=== PATIENT | male | born 1990 | race Asian ===

== ENCOUNTER 2020-07-28 16:27 | Inpatient (IN) | payer BC, OTHER ==
[~2020-07-28] VITALS: Ht 180.3 cm; Wt 78.5 kg
[2020-07-28 09:49] VITALS: BP 114/60
[2020-07-28 17:35] VITALS: BP 110/60
--- NOTE | 2020-07-28 17:47 | NUR ---
ED Nurse Note: Patient walked in to ER from home, stated came to have blood transfusion. Patient 's PCP determined thatpatient's hgb level 6.5, and he needs blood transfusion LIANNA. Patient presented pale, with steady gait, AAO x4, VSS at this time.
--- NOTE | 2020-07-28 17:50 | NUR ---
ED Nurse Note: IV line was established on left AC 20ga, blood sent to lab
--- NOTE | 2020-07-28 18:03 | Emergency Room Report ---
History of Present Illness General Chief Complaint: General Complaint Source: Patient (Manjula Ruiz) Present Illness HPI 30 YO male w. hx of bleeding hemorrhoids and anemia presents to the ED sent in by GI specialist for low hemoglobin. Pt. reports his blood work came back as hgb of 6.5 ( has results with him ). Pt. reports feeling weak and dizzy. Pt. reports he was scheduled to have surgery to address the bleeding hemorrhoids however anesthesiologist and surgeon want his Hgb to be normalized prior to full sedation during surgery. Pt. reports he has had bleeding hemorrhoids for over 3 years. Pt. reports intermittent episodes. He reports he began bleeding again about a month ago and describes. "moderate amount daily". He reports BRBPR. Denies black tarry stools. Pt. denies significant changes in weight, SOB, CP or palpitations. Pt. denies syncope. Pt. denies every having a transfusion in the past though has been aware he is very anemic. (Manjula Ruiz) Allergies: Coded Allergies: No Known Allergies (Unverified , 07/28/20) COVID-19 Screening Contact w/high risk pt: No Experienced COVID-19 symptoms?: No COVID-19 Testing performed LOG SORTING SUPERVISOR: No (Manjula Ruiz) Patient History Past Medical History: see triage record Past Surgical History: none Pertinent Family History: none Reviewed Nursing Documentation: PMH: Agreed; PSxH: Agreed (Manjula Ruiz) Nursing Documentation-PMH Past Medical History: No Stated History (Manjula Ruiz) Review of Systems All Other Systems: negative except mentioned in HPI (Manjula Ruiz) Physical Exam Vital Signs Date Time Temp Pulse Resp B/P (MAP) Pulse Ox O2 Delivery O2 Flow Rate FiO2 07/28/20 17:25 98.4 96 18 110/60 (77) 97 Room Air Sp02 EP Interpretation: reviewed, normal General Appearance: no apparent distress, alert, GCS 15, non-toxic Head: normocephalic, atraumatic Eyes: bilateral eye normal inspection, bilateral eye PERRL ENT: hearing grossly normal, normal voice Neck: full range of motion Respiratory: chest non-tender, lungs clear, normal breath sounds, no respiratory distress, no accessory muscle use, no wheezing, speaking full sentences Cardiovascular #1: regular rate, rhythm, other - mildly delayed cap refill. Gastrointestinal: normal bowel sounds, non tender, soft, non-distended, no guarding Rectal: deferred, hemorrhoids Musculoskeletal: normal range of motion, gait/station normal, non-tender Neurologic: alert, motor strength/tone normal, oriented x3, sensory intact, responsive, speech normal Psychiatric: judgement/insight normal Skin: no rash, pallor - pale palms (Manjula Ruiz) Procedures Critical Care Time Critical Care Time Pt. presentation to the ED mandated critical care. Pt. required immediate intervention to assess the risks and attempt to prevent cardiovascular compromise that could lead to . The patient presented severely anemic with a Hgb. of 6.2 requiring emergent blood transfusion. Critical care time is 63 minutes excluding any reportable procedure. Critical care time included evaluation, multiple reevaluation, looking at old charts, interpreting laboratory and diagnostic data, discussing case with patient, his ,admitting physician/consultants and charting. (Manjula Ruiz) Medical Decision Making PA Attestation Dr. Rivas is my supervising Physician whom patient management has been dis cussed with. (Manjula Ruiz) PA Attestation I participated in the care of this patient along with MODESTO Jones Briefly, this is a 30-year-old male presenting for evaluation of anemia. Had low hemoglobin on outpatient testing. He attributes this to hemorrhoidal bleeding for which she is pending surgery. Feels weak and lightheaded. No prior transfusions. Low hemoglobin confirmed and arranging for transfusion though the patient was found leukopenic and require further work-up. Accepted by [facility] who is on panel today. Dr. Lafleur physician marine service station attendant this evening. Additional labs sent at the request of admitting team. (Brando Rivas MD) Diagnostic Impression: Primary Impression: Severe anemia Additional Impressions: Patient consents to blood transfusion Bleeding hemorrhoids ER Course 30 YO male w. hx of bleeding hemorrhoids and anemia presents to the ED sent in by GI specialist for low hemoglobin. Pt. reports his blood work came back as hgb of 6.5 ( has results with him ). Pt. reports feeling weak and dizzy. Pt. reports he was scheduled to have surgery to address the bleeding hemorrhoids however anesthesiologist and surgeon want his Hgb to be normalized prior to full sedation during surgery. Pt. reports he has had bleeding hemorrhoids for over 3 years. Pt. reports intermittent episodes. He reports he began bleeding again about a month ago and describes. "moderate amount daily". He reports BRBPR. Denies black tarry stools. Pt. denies significant changes in weight, SOB, CP or palpitations. Pt. denies syncope. Pt. denies every having a transfusion in the past though has been aware he is very anemic. Ddx considered but are not limited to : Hypovolemia, infection, GI bleed, Cancer, blood dyscrasia or Anemia just to name a few. Vital signs: are WNL, pt. is afebrile H&PE are most consistent with Pale appearing alert and oriented young male who is non toxic in appearance, and in NAD. Pt. does not have acute abdomen on exam. VS are normal no significant signs of compensation. ORDERS: -CBC: Pancytopenia, 3.5 WBC,, Hgb 6.2 , hct: 20.7 -BMP: WNL - PT/PTT: 11.5/ 20 ABO Type and screen : B Positive ED INTERVENTIONS: -Pt. placed on cardiac monitoring. -Pt. education re: blood transfusions and possible complications/side effects. Pt. had a chance to ask any questions or request further clarification. Pt. verbalized his understanding and intent to proceed with Blood transfusion. Consent form was signed. - Blood transfusion of 2 units initiated. I feel this is a highly complex case requiring extensive laboratory work up, multiple blood transfusions, repeat exams while in ED, and admission to hospital. DISPOSITION: at this time pt. will be admitted for Severe anemia. Pt. signed out to attending physician Dr. Rivas pending accepting admitting doctor. Labs Test 07/28/20 18:23 White Blood Count 3.7 K/UL (4.8-10.8) Red Blood Count 3.00 M/UL (4.70-6.10) Hemoglobin 6.2 G/DL (14.2-18.0) Hematocrit 20.7 % (42.0-52.0) Mean Corpuscular Volume 69 FL (80-99) Mean Corpuscular Hemoglobin 20.8 PG (27.0-31.0) Mean Corpuscular Hemoglobin Concent 30.1 G/DL (32.0-36.0) Red Cell Distribution Width 16.8 % (11.6-14.8) Platelet Count 372 K/UL (150-450) Mean Platelet Volume 6.0 FL (6.5-10.1) Neutrophils (%) (Auto) % (45.0-75.0) Lymphocytes (%) (Auto) % (20.0-45.0) Monocytes (%) (Auto) % (1.0-10.0) Eosinophils (%) (Auto) % (0.0-3.0) Basophils (%) (Auto) % (0.0-2.0) Differential Total Cells Counted 100 Neutrophils % (Manual) 60 % (45-75) Lymphocytes % (Manual) 30 % (20-45) Monocytes % (Manual) 8 % (1-10) Eosinophils % (Manual) 2 % (0-3) Basophils % (Manual) 0 % (0-2) Band Neutrophils 0 % (0-8) Platelet Estimate Adequate Platelet Morphology Normal Hypochromasia 3+ Anisocytosis 1+ Prothrombin Time 11.5 SEC (9.30-11.50) Prothromb Time International Ratio 1.0 (0.9-1.1) Activated Partial Thromboplast Time 20 SEC (23-33) Sodium Level 141 MMOL/L (136-145) Potassium Level 4.2 MMOL/L (3.5-5.1) Chloride Level 105 MMOL/L (98-107) Carbon Dioxide Level 29 MMOL/L (21-32) Anion Gap 7 mmol/L (5-15) Blood Urea Nitrogen 11 mg/dL (7-18) Creatinine 1.0 MG/DL (0.55-1.30) Estimat Glomerular Filtration Rate > 60 mL/min (>60) Glucose Level 119 MG/DL (74-106) Calcium Level 9.2 MG/DL (8.5-10.1) (Manjula Ruiz) Last Vital Signs Date Time Temp Pulse Resp B/P (MAP) Pulse Ox O2 Delivery O2 Flow Rate FiO2 07/28/20 17:35 98.4 89 18 110/60 97 Room Air (Manjula Ruiz) Disposition: ADMITTED INPATIENT Condition: Serious Referrals: [facility],REFERRING (PCP) Manjula Ruiz Jul 28, 2020 18:03 Brando Rivas MD Jul 28, 2020 19:38
[2020-07-28 18:44] LABS: HEMATOCRIT 20.7 % (42.0-52.0); MEAN CORPUSCULAR VOLUME 69 FL (80-99); PLATELET COUNT 372 K/UL (150-450); RED CELL DISTRIBUTION WIDTH 16.8 % (11.6-14.8); WHITE BLOOD COUNT 3.7 K/UL (4.8-10.8)
[2020-07-28 18:53] LABS: ANION GAP 7 mmol/L (5-15); BLOOD UREA NITROGEN 11 mg/dL (7-18); CALCIUM 9.2 MG/DL (8.5-10.1); CARBON DIOXIDE 29 MMOL/L (21-32); CHLORIDE 105 MMOL/L (98-107); POTASSIUM 4.2 MMOL/L (3.5-5.1); SODIUM 141 MMOL/L (136-145)
[2020-07-28 19:01] LABS: HEMOGLOBIN 6.2 G/DL (14.2-18.0)
--- NOTE | 2020-07-28 19:10 | NUR ---
HAND-OFF: Report given to JONES Ryan.
--- NOTE | 2020-07-28 19:20 | NUR ---
ED Nurse Note: Recieved report to resume care, pt in bed resting quietly awake and alert, has patent saline lock in left ac area, pt is waiting for blood transfusion of PRBS to be given, pt denies pain, no sob oa labored breathing, pt has never been transfused before, witnessed PA at bedside discussing all factors for tramnsfusion and pt allowed to ask questions, consent form was signed, pt placed on cardiac monitoring, waiting for blood to be ready for transfusion.
[2020-07-28 20:00] VITALS: BP 117/68
--- NOTE | 2020-07-28 21:00 | NUR ---
ED Nurse Note: Pt continues to rest quietly in bed, awake and alert, denies pain or any acute chagnes, no active bleeding noted, pt v/s stable and saline lock intact, continuing to wait for blood to be ready for transfusion, will continue to closely monitor for any acute chagnes or increased distress.
[2020-07-28 21:35] VITALS: BP 127/50
[2020-07-28 21:55] VITALS: BP 111/49
--- NOTE | 2020-07-28 21:55 | NUR ---
ED Nurse Note: Pt started with transfusion of PRBC's, stayed at bedside with pt for first 15 minutes, no s/s of adverse reaction noted, pt on complete cardiac monitoring, pt re-verbalizes s/s to notify nurse of immediately, IV site patent, will continue to closely monitor following protocol during transfusion.
[2020-07-28 22:37] LABS: % IRON SATURATION 2 % (15-50); IRON 8 ug/dL (50-175); TOTAL IRON BINDING CAPACITY 493 ug/dL (250-450)
[2020-07-28 22:38] LABS: LACTATE DEHYDROGENASE 172 U/L (81-234)
[2020-07-28 22:49] LABS: ALANINE AMINOTRANSFERASE 35 U/L (12-78); ALBUMIN 3.9 G/DL (3.4-5.0); ALKALINE PHOSPHATASE 50 U/L (46-116); ASPARTATE AMINO TRANSFERASE 17 U/L (15-37); BILIRUBIN,DIRECT < 0.1 MG/DL (0.0-0.3); BILIRUBIN,TOTAL 0.3 MG/DL (0.2-1.0); FERRITIN 2 NG/ML (8-388)
[2020-07-28 22:55] VITALS: BP 109/57
--- NOTE | 2020-07-28 22:55 | NUR ---
ED Nurse Note: Pt tolerating blood transfusionn well, v/s and temp remain wnl, IV site patent, pt resting quietly on cardiac monitoring, will continue to closely monitor, pt denies pain, sob, or any acute chagnes.
--- NOTE | 2020-07-28 23:45 | NUR ---
ED Nurse Note: Pt completed first unit of PRBC's, tolerated well, no s/s of adverse reaction noted, IV site patent, pt denies pain, sob, or any other complaints or discomforts, pt ambulating to bathroom, steady gait, denies dizziness or weakness, pt replaced back to cardiac monitoring, ns infusing at TKO while retrieving second unit to start.
[2020-07-29 01:25] VITALS: BP 121/68
--- NOTE | 2020-07-29 01:30 | NUR ---
ED Nurse Note: Pt started on second unit of blood, tolerating well, no s/s of adverse reaction noted, IV site intact and patent, pt denies chest pain or any pain, no sob or labored breathing, denies any complaints or discomforts, pt also taking oral fluids well, no complications or acute chagnes, will continue to monitor while recieving blood transfusion.
[2020-07-29 02:30] VITALS: BP 124/66
--- NOTE | 2020-07-29 03:00 | NUR ---
ED Nurse Note: Pt resting quietly, transfusion of PRBC's infusing, pt tolerating well, IV site patent, v/s stable, no sob or laobored breathing, pt denies pain or any active bleeding, remains on cardiac monitoring, will continue to monitor and follow protocol for blood transfusion.
--- NOTE | 2020-07-29 04:45 | NUR ---
ED Nurse Note: Transfusion completed, no s/s of adverse reaction noted, pt tolerated well, v/s stable, denies pain or any acute changes, IV site patent, pt resting quietly, will continue to closely monitor. pt has been admitted to hospital, no beds available.
[2020-07-29 05:00] VITALS: BP 109/71
--- NOTE | 2020-07-29 06:25 | NUR ---
ED Nurse Note: Pt in bed resting quietly, awakened to use bathroom, ambulates well with steady gait, pt waiting for admission room in hospital, pt wants to be discharged from ed, will inform md, pt denies pain, no sob or labored breathing noted, IV site patent, nad or changes noted, will continue to monitor while waiting to send to floor bed after 730am.
--- NOTE | 2020-07-29 09:15 | NUR ---
ED Nurse Note: report given to china michael in telemetry unit
--- NOTE | 2020-07-29 09:29 | NUR ---
ED Nurse Note: blood drawn for post blood trasnfusion
[2020-07-29 09:30] VITALS: BP 109/71
[2020-07-29 09:42] LABS: BASOPHILS % (AUTO) 0.6 % (0.0-2.0); EOSINOPHILS % (AUTO) 3.2 % (0.0-3.0); HEMATOCRIT 24.9 % (42.0-52.0); LYMPHOCYTES % (AUTO) 35.3 % (20.0-45.0); MEAN CORPUSCULAR VOLUME 73 FL (80-99); MONOCYTES % (AUTO) 8.3 % (1.0-10.0); NEUTROPHILS % (AUTO) 52.7 % (45.0-75.0); PLATELET COUNT 313 K/UL (150-450); RED BLOOD COUNT 3.43 M/UL (4.70-6.10); RED CELL DISTRIBUTION WIDTH 18.4 % (11.6-14.8); WHITE BLOOD COUNT 4.6 K/UL (4.8-10.8)
[2020-07-29 09:51] LABS: ALANINE AMINOTRANSFERASE 40 U/L (12-78); ALBUMIN 3.5 G/DL (3.4-5.0); ALBUMIN/GLOBULIN RATIO 1.2 (1.0-2.7); ALKALINE PHOSPHATASE 46 U/L (46-116); ANION GAP 5 mmol/L (5-15); ASPARTATE AMINO TRANSFERASE 19 U/L (15-37); BILIRUBIN,TOTAL 0.6 MG/DL (0.2-1.0); BLOOD UREA NITROGEN 11 mg/dL (7-18); CALCIUM 8.4 MG/DL (8.5-10.1); CARBON DIOXIDE 27 MMOL/L (21-32); CHLORIDE 106 MMOL/L (98-107); PHOSPHORUS 4.2 MG/DL (2.5-4.9); POTASSIUM 3.9 MMOL/L (3.5-5.1); SODIUM 138 MMOL/L (136-145)
--- NOTE | 2020-07-29 09:51 | NUR ---
NURSE NOTES: Report received from Luz GOLDMAN. Patient admitted from ER via bashirrbrittany, AxOx4, ambulatory, not in distress. No complaints of pain or dizziness. Per nurse, patient received 2 units PRBC in the ER with no adverse events for Hgb level 6.2. Currently waiting repeat labwork. No signs of active bleeding. Patient hooked to tele monitor, SR. PIV on left AC G.18 patent. Pt is ambulatory and continent. Bed low and locked, siderails up x2, call light placed within reach and instructed to call nurse for assistance. Will continue to monitor.
--- NOTE | 2020-07-29 09:54 | NUR ---
NURSE NOTES: Per Dr. Quiñones, surgery to see patient today, keep NPO. Pt educated and verbalized understanding.
--- NOTE | 2020-07-29 11:54 | NUR ---
NURSE NOTES: Patient signed out AMA. Drs. Saini and Ishmael both saw patient and explained risks and consequences of discharging against medical advice, pt is AxOx4, verbalized understanding and still wished to discharge. Says he has outpatient surgery scheduled tomorrow and will followup with primary MD.
--- NOTE | 2020-07-29 13:28 | Consultation ---
History of Present Illness General Date patient seen: Jul 29, 2020 Reason for Hospitalization: General Complaint Present Illness HPI 30 year old pleasant male known history of bleeding hemorrhoids and anemia presents to the ED sent in by GI specialist for low hemoglobin. Pt. reports his blood work came back as hgb of 6.5 ( has results with him ). Pt. reports feeling weak and dizzy. Pt. reports he was scheduled to have surgery to address the bleeding hemorrhoids however anesthesiologist and surgeon want his Hgb to be normalized prior to full sedation during surgery. Pt. reports he has had bleeding hemorrhoids for over 14 years. Pt. reports intermittent episodes. He reports he began bleeding again about a month ago and describes. "moderate amount daily". He reports BRBPR. Denies black tarry stools. Pt. denies significant changes in weight, SOB, CP or palpitations. Pt. denies syncope. Pt. denies every having a transfusion in the past though has been aware he is very anemic. prior episode 1 year ago resolved with banding. now anticipating surgery. given 2 units prbc Allergies: Coded Allergies: No Known Allergies (Unverified , 07/28/20) COVID-19 Screening Contact w/high risk pt: No Experienced COVID-19 symptoms?: No Patient History History Provided By: Patient, PMD Healthcare decision maker Resuscitation status Advanced Directive on File Past Medical/Surgical History Past Medical/Surgical History: (1) Bleeding hemorrhoids (2) Severe anemia (3) Patient consents to blood transfusion Review of Systems Review of Symptoms General ROS: no weight loss or fever Psychological ROS: no depression or mood changes, no memory loss Ophthalmic ROS: no visual changes or eye irritation ENT ROS: no nasal congestion, hearing loss, dizziness Allergy and Immunology ROS: no allergic symptoms or urticaria Hematological and Lymphatic ROS: no swollen glands, unusual bleeding or bruising Endocrine ROS: no polyuria, polydipsia, weight changes, temperature intolerance Respiratory ROS: no cough, shortness of breath, or wheezing Cardiovascular ROS: no chest pain or dyspnea on exertion Gastrointestinal ROS: denies abdominal pain, bright red blood in stool. Musculoskeletal ROS: no myalgias or arthralgias Neurological ROS: no TIA or stroke symptoms Dermatological ROS: no new or changing skin lesions, rashes or pruritis Physical Exam Physical Exam General appearance: alert, cooperative, no distress, appears stated age Head: Normocephalic, without obvious abnormality, atraumatic Eyes: conjunctivae/corneas clear. PERRL, EOM's intact. Fundi benign Throat: Lips, mucosa, and tongue normal. Teeth and gums normal Neck: supple, symmetrical, trachea midline, no adenopathy, thyroid: not enlarged, symmetric, no tenderness/mass/nodules, no carotid bruit and no JVD Lungs: clear to auscultation bilaterally Heart: regular rate and rhythm, S1, S2 normal, no murmur, click, rub or gallop Abdomen: soft, non-tender. Bowel sounds normal. No masses, no organomegaly Extremities: extremities normal, atraumatic, no cyanosis or edema Pulses: 2+ and symmetric Skin: Skin color, texture, turgor normal. No rashes or lesions Neurologic: Grossly normal Last 24 Hour Vital Signs Date Time Temp Pulse Resp B/P (MAP) Pulse Ox O2 Delivery O2 Flow Rate FiO2 07/29/20 09:49 Room Air 07/29/20 09:30 98.7 70 14 109/71 99 Room Air 07/29/20 05:00 98.7 70 14 109/71 99 Room Air 07/29/20 04:45 98.7 70 14 07/29/20 03:30 98.8 75 16 07/29/20 02:30 98.8 70 16 124/66 99 Room Air 07/29/20 02:30 99.0 76 20 07/29/20 01:25 99.0 76 15 07/29/20 01:25 99.0 76 15 121/68 100 Room Air 07/29/20 01:10 98.8 73 17 07/28/20 23:45 98.8 72 17 07/28/20 22:55 98.8 82 16 07/28/20 22:55 98.8 77 16 109/57 99 Room Air 07/28/20 21:55 98.8 77 18 07/28/20 21:55 98.8 77 18 111/49 99 Room Air 07/28/20 21:40 98.8 74 18 07/28/20 21:35 98.8 74 18 127/50 99 Room Air 07/28/20 20:00 98.4 81 18 117/68 99 Room Air 07/28/20 17:35 98.4 89 18 110/60 97 Room Air 07/28/20 17:35 96 18 Room Air 07/28/20 17:25 98.4 96 18 110/60 (77) 97 Room Air Intake and Output 07/28/20 07/29/20 19:00 07:00 Intake Total 500 ml Balance 500 ml Intake Blood Product 500 ml # Voids 1 1 Laboratory Tests Test 07/28/20 18:23 07/29/20 09:21 White Blood Count 3.7 K/UL (4.8-10.8) L 4.6 K/UL (4.8-10.8) L Red Blood Count 3.00 M/UL (4.70-6.10) L 3.43 M/UL (4.70-6.10) L Hemoglobin 6.2 G/DL (14.2-18.0) *L 8.0 G/DL (14.2-18.0) L Hematocrit 20.7 % (42.0-52.0) L 24.9 % (42.0-52.0) L Mean Corpuscular Volume 69 FL (80-99) L 73 FL (80-99) L Mean Corpuscular Hemoglobin 20.8 PG (27.0-31.0) L 23.4 PG (27.0-31.0) L Mean Corpuscular Hemoglobin Concent 30.1 G/DL (32.0-36.0) L 32.3 G/DL (32.0-36.0) Red Cell Distribution Width 16.8 % (11.6-14.8) H 18.4 % (11.6-14.8) H Platelet Count 372 K/UL (150-450) 313 K/UL (150-450) Mean Platelet Volume 6.0 FL (6.5-10.1) L 6.0 FL (6.5-10.1) L Neutrophils (%) (Auto) % (45.0-75.0) 52.7 % (45.0-75.0) Lymphocytes (%) (Auto) % (20.0-45.0) 35.3 % (20.0-45.0) Monocytes (%) (Auto) % (1.0-10.0) 8.3 % (1.0-10.0) Eosinophils (%) (Auto) % (0.0-3.0) 3.2 % (0.0-3.0) H Basophils (%) (Auto) % (0.0-2.0) 0.6 % (0.0-2.0) Differential Total Cells Counted 100 Neutrophils % (Manual) 60 % (45-75) Lymphocytes % (Manual) 30 % (20-45) Monocytes % (Manual) 8 % (1-10) Eosinophils % (Manual) 2 % (0-3) Basophils % (Manual) 0 % (0-2) Band Neutrophils 0 % (0-8) Platelet Estimate Adequate Platelet Morphology Normal Hypochromasia 3+ Anisocytosis 1+ Reticulocyte Count 2.8 % (0.5-2.0) H Haptoglobin Pending Prothrombin Time 11.5 SEC (9.30-11.50) Prothromb Time International Ratio 1.0 (0.9-1.1) Activated Partial Thromboplast Time 20 SEC (23-33) L Sodium Level 141 MMOL/L (136-145) 138 MMOL/L (136-145) Potassium Level 4.2 MMOL/L (3.5-5.1) 3.9 MMOL/L (3.5-5.1) Chloride Level 105 MMOL/L (98-107) 106 MMOL/L (98-107) Carbon Dioxide Level 29 MMOL/L (21-32) 27 MMOL/L (21-32) Anion Gap 7 mmol/L (5-15) 5 mmol/L (5-15) Blood Urea Nitrogen 11 mg/dL (7-18) 11 mg/dL (7-18) Creatinine 1.0 MG/DL (0.55-1.30) 1.0 MG/DL (0.55-1.30) Estimat Glomerular Filtration Rate > 60 mL/min (>60) > 60 mL/min (>60) Glucose Level 119 MG/DL (74-106) H 97 MG/DL (74-106) Calcium Level 9.2 MG/DL (8.5-10.1) 8.4 MG/DL (8.5-10.1) L Iron Level 8 ug/dL (50-175) L Total Iron Binding Capacity 493 ug/dL (250-450) H Percent Iron Saturation 2 % (15-50) L Unsaturated Iron Binding 485 ug/dL (112-346) H Ferritin 2 NG/ML (8-388) L Total Bilirubin 0.3 MG/DL (0.2-1.0) 0.6 MG/DL (0.2-1.0) Direct Bilirubin < 0.1 MG/DL (0.0-0.3) Aspartate Amino Transf (AST/SGOT) 17 U/L (15-37) 19 U/L (15-37) Alanine Aminotransferase (ALT/SGPT) 35 U/L (12-78) 40 U/L (12-78) Alkaline Phosphatase 50 U/L (46-116) 46 U/L (46-116) Lactate Dehydrogenase 172 U/L (81-234) Total Protein 7.0 G/DL (6.4-8.2) 6.5 G/DL (6.4-8.2) Albumin 3.9 G/DL (3.4-5.0) 3.5 G/DL (3.4-5.0) Vitamin B12 Level 458 PG/ML (193-986) Folate 7.3 NG/ML (8.6-58.9) L Phosphorus Level 4.2 MG/DL (2.5-4.9) Magnesium Level 1.9 MG/DL (1.8-2.4) Globulin 3.0 g/dL Albumin/Globulin Ratio 1.2 (1.0-2.7) Height (Feet): 5 Height (Inches): 11.00 Weight (Pounds): 173 Assessment/Plan Problem List: (1) Bleeding hemorrhoids Assessment & Plan: no active bleeding chronic anemia secondary to chronic bleeding hemorrhoids transfused prbc improved now feels much better no n/v/f/c wants diet wants to go home no acute surgical intervention planned cont with outpatient planned surgery as scheduled with primary surgeon trend h/h plan d/c tomorrow of note patient wants to go home today plans to sign out ama ICD Codes: K64.9 - Unspecified hemorrhoids SNOMED: 47521987 (2) Severe anemia ICD Codes: D64.9 - Anemia, unspecified SNOMED: 283537609 (3) Patient consents to blood transfusion SNOMED: 153832228 Jian Saini Jul 29, 2020 13:28
--- NOTE | 2020-07-29 17:43 | Discharge Summary ---
Discharge Summary Hospital Course Date of Admission Jul 28, 2020 at 20:10 Date of Discharge Jul 29, 2020 at 11:53 Admitting Diagnosis Anemia requiring blood transfusion CRISELDA Wheeler is a 30 year old male who was admitted on Jul 28, 2020 at 20:10 for Anemia Requiring Blood Transfusion Hospital Course The patient then decided to leave AMA citing wanting to go home as his reason. I believe that the patient clearly has decision-making capacity to understand the risks of refusing care and leaving AGAINST MEDICAL ADVICE. I have informed him/her about the consequences of leaving, including , permanent disability, and other possible unforeseen consequences. He understands these risks, but still refused to stay in the hospital. I have invited the patient back if he/she changes his mind, or worsens in any way. I have offered him the next best possible care including . The patient is alert and oriented x4, and I certainly do not feel that I can hold him against his will and force treatment upon him that he does not want. I tried my best to explain to him the potential serious consequences of leaving AMA, but he still refused to stay, and signed out AMA. THe patient was an A&O x 4, non-intoxicated adult. Will check CBC tomorrow. Follow up with outpatient hemorroid surgeon and PCP #Acute blood loss anemia #Acute on chronic hematochezia 2/2 hemorrhoids #Hemorrhoids #acute lower gi bleed -Admit to telemetry -s/p 2 units PRBC in Ed -Repeat CBC -trend CBC -monitor overnight for stability -Appreciate GI consult: Dr. Manrique -Appreciate Surgery consult: Dr. Saini -Outpatient hemorroid surgery eventually #Etoh Abuse -Counseled on abstinence from alcohol. Last drink one week ago. -No signs of withdrawl -No history of withdrawl, delerium tremens, seizures, etc. FENPPX DVTPPX: SCDs GI PPX: none Fluids: none Diet: regular Lines: PIV PT/OT: pending Code status: FUll Dispo: Home Reason for Continued Hospitalization: acute blood loss MIPS (Merit-based Incentive Payment System) Applicable CPT: 97435, 28118 CHECK ALL THAT ARE MET: [] Measure #5 (CHF): All ages. Prescribe EARLINE/ARB upon discharge for patients with left ventricular systolic dysfunction. If not, the reason is clearly documented in the medical chart [] Measure #8 (CHF): All ages. Prescribe a beta estefanía upon discharge for patients with left ventricular systolic dysfunction. If not, the reason is clearly documented in the medical chart. [] Measure #47: Advance care plan or surrogate decision maker documented in the medical record. [x] Measure #130 The provider has documented, updated, or reviewed the patients current medication list and has documented it in the patients note. [x] Measure #374 (All): Send report to referring provider. [] Measure #407(Sepsis due to MSSA bacteremia): Age 18+ Patient treated with a beta-lactam antibiotic (Nafcillin, Oxacillin or Cefazolin) as definitive therapy. MEDICAL COMPLEXITYHigh complexity medical decision making (need 2/3 categories)Problem - need 4 points [x]Acute/new problem with new plan for workup (4 points, 1 max) [] Acute/new problem without additional workup (3 points, 1 max) [x] Unstable chronic problem actively being managed (2 point each, 2 max) [x] Stable chronic problem actively being managed (1 point each, 2 max) [] Self-limited/transient process (constipation, muscle ache, etc) (1 point each, 2 max) Data - need 4 points [x] Reviewed labs/imaging studies (1 points, 2 max) [x] Independent review of imaging (EKG, xrays, etc) (2 points, 2 max) [x] Discussed case with consult/other MD/RN (2 points, 2 max) High Risk - qualify if have one of the following: [x] Severe exacerbation of acute problem, acute mental status change, IV narcotics, monitoring drug levels (vancomycin, INR, tacrolimus etc) I spent 72 minutes on this patient's case, and 40 mins was dedicated to counseling and/or care coordination. Discussed with surgery, GI, RN Time of note may not reflect time of encounter Discharge Discharge Vital Signs Last Vital Signs Date Time Temp Pulse Resp B/P (MAP) Pulse Ox O2 Delivery O2 Flow Rate FiO2 07/29/20 09:49 Room Air 07/29/20 09:30 98.7 70 14 109/71 99 Discharge Disposition Patient was discharged to Rosalio Quiñones D.O. Jul 29, 2020 17:43
--- NOTE | 2020-07-29 17:43 | History and Physical ---
History of Present Illness General Date patient seen: Jul 29, 2020 Reason for Hospitalization: General Complaint Present Illness Allergies: Coded Allergies: No Known Allergies (Unverified , 07/28/20) COVID-19 Screening Contact w/high risk pt: No Experienced COVID-19 symptoms?: No Patient History Healthcare decision maker Resuscitation status Full Advanced Directive on File Patient History Narrative This is a 30-year-old male with a past medical history of hemorrhoids for the past 2 years who presented to the ER after recent CBC showed hgb 6.5. The patient states that for the past week he has had worsening hematochezia. He sta nupur that he has large amounts of bright red stool every time he went to bathroom. He is planned for outpatient hemorrhoid surgery tomorrow. He was sent to the ER for blood transfusion prior to surgery. He is currently no longer bleeding. He also endorses history of chronic daily alcohol abuse. He continues 8-10 beers per day. He says his last drink was over a week ago. He is not intoxicated. He denies any abdominal pain, nausea vomiting or other bleeding. He denies any chest pain. In the ER his hemoglobin was 6.2. He was given 2 units of PRBC and seen by surgery who recommended to stay one more day in hospital to ensure stability of hemoglobin. Allergies: NKDA Meds: none PMHx: see HPI Surgical Hx: Hemorroidal banding in January, Family history: Mother with breast Ca Social history Tobacco: Socially, yes Etoh: 8-10 beers per day for many years. Last drink one week ago Drug: denies Review of Systems ROS Narrative Review of systems: Constitutional: Denies: chills, diaphoresis, fever, malaise, weakness, HEENT: Denies: eye pain, blurred vision, double vision, ear pain, nose pain, throat pain, Cardiovascular: Denies: chest pain, edema, lightheadedness, palpitations Respiratory: Denies: cough, orthopnea, shortness of breath, SOB with excertion, SOB at rest, Gastrointestinal/Abdominal: See HPI Genitourinary: Denies: burning, discharge, frequency, Neurologic/Psychiatric: Denies: headache, numbness, paresthesia, new weakness, other Endocrine: Denies: excessive sweating, flushing, intolerance to cold, MSK: denies joint pains, swelling, stiffness Hematologic/Lymphatic: Denies: anemia, easy bleeding, easy bruising, Psych: no anxiety, depression, SI or HI Physical Exam Physical Exam Narrative General: WDWN male in NAD, A&O x 4 HEENT: Normocephalic cephalic atraumatic, pupils equal round reactive to light and accommodation, nares patent and no symmetrical, no tonsillar exudates, mucous membranes moist CV: Regular rate regular rhythm, no murmurs, rubs, or gallops Pulm: Lungs clear to auscultation bilaterally. No wheezes, rhonchi, or rales GI: Soft, nontender, nondistended, bowel sounds present Rectal: Refused because already seen by surgery Neuro: CN 2-12 intact bilaterally, no focal signs. Ext: No lower extremity edema bilaterally Skin: no rashes lesions or ulcers Msk: Joints symmetrical in upper extremity and lower extremity bilaterally, no joint swelling. Lymph: No lymphadenopathy in upper extremity and lower extremity Last 24 Hour Vital Signs Date Time Temp Pulse Resp B/P (MAP) Pulse Ox O2 Delivery O2 Flow Rate FiO2 07/29/20 09:49 Room Air 07/29/20 09:30 98.7 70 14 109/71 99 Room Air 07/29/20 05:00 98.7 70 14 109/71 99 Room Air 07/29/20 04:45 98.7 70 14 07/29/20 03:30 98.8 75 16 07/29/20 02:30 98.8 70 16 124/66 99 Room Air 07/29/20 02:30 99.0 76 20 07/29/20 01:25 99.0 76 15 07/29/20 01:25 99.0 76 15 121/68 100 Room Air 07/29/20 01:10 98.8 73 17 07/28/20 23:45 98.8 72 17 07/28/20 22:55 98.8 82 16 07/28/20 22:55 98.8 77 16 109/57 99 Room Air 07/28/20 21:55 98.8 77 18 07/28/20 21:55 98.8 77 18 111/49 99 Room Air 07/28/20 21:40 98.8 74 18 07/28/20 21:35 98.8 74 18 127/50 99 Room Air 07/28/20 20:00 98.4 81 18 117/68 99 Room Air 07/28/20 17:35 98.4 89 18 110/60 97 Room Air 07/28/20 17:35 96 18 Room Air Intake and Output 07/28/20 07/29/20 19:00 07:00 Intake Total 500 ml Balance 500 ml Intake Blood Product 500 ml # Voids 1 1 Laboratory Tests Test 07/28/20 18:23 07/29/20 09:21 White Blood Count 3.7 K/UL (4.8-10.8) L 4.6 K/UL (4.8-10.8) L Red Blood Count 3.00 M/UL (4.70-6.10) L 3.43 M/UL (4.70-6.10) L Hemoglobin 6.2 G/DL (14.2-18.0) *L 8.0 G/DL (14.2-18.0) L Hematocrit 20.7 % (42.0-52.0) L 24.9 % (42.0-52.0) L Mean Corpuscular Volume 69 FL (80-99) L 73 FL (80-99) L Mean Corpuscular Hemoglobin 20.8 PG (27.0-31.0) L 23.4 PG (27.0-31.0) L Mean Corpuscular Hemoglobin Concent 30.1 G/DL (32.0-36.0) L 32.3 G/DL (32.0-36.0) Red Cell Distribution Width 16.8 % (11.6-14.8) H 18.4 % (11.6-14.8) H Platelet Count 372 K/UL (150-450) 313 K/UL (150-450) Mean Platelet Volume 6.0 FL (6.5-10.1) L 6.0 FL (6.5-10.1) L Neutrophils (%) (Auto) % (45.0-75.0) 52.7 % (45.0-75.0) Lymphocytes (%) (Auto) % (20.0-45.0) 35.3 % (20.0-45.0) Monocytes (%) (Auto) % (1.0-10.0) 8.3 % (1.0-10.0) Eosinophils (%) (Auto) % (0.0-3.0) 3.2 % (0.0-3.0) H Basophils (%) (Auto) % (0.0-2.0) 0.6 % (0.0-2.0) Differential Total Cells Counted 100 Neutrophils % (Manual) 60 % (45-75) Lymphocytes % (Manual) 30 % (20-45) Monocytes % (Manual) 8 % (1-10) Eosinophils % (Manual) 2 % (0-3) Basophils % (Manual) 0 % (0-2) Band Neutrophils 0 % (0-8) Platelet Estimate Adequate Platelet Morphology Normal Hypochromasia 3+ Anisocytosis 1+ Reticulocyte Count 2.8 % (0.5-2.0) H Haptoglobin Pending Prothrombin Time 11.5 SEC (9.30-11.50) Prothromb Time International Ratio 1.0 (0.9-1.1) Activated Partial Thromboplast Time 20 SEC (23-33) L Sodium Level 141 MMOL/L (136-145) 138 MMOL/L (136-145) Potassium Level 4.2 MMOL/L (3.5-5.1) 3.9 MMOL/L (3.5-5.1) Chloride Level 105 MMOL/L (98-107) 106 MMOL/L (98-107) Carbon Dioxide Level 29 MMOL/L (21-32) 27 MMOL/L (21-32) Anion Gap 7 mmol/L (5-15) 5 mmol/L (5-15) Blood Urea Nitrogen 11 mg/dL (7-18) 11 mg/dL (7-18) Creatinine 1.0 MG/DL (0.55-1.30) 1.0 MG/DL (0.55-1.30) Estimat Glomerular Filtration Rate > 60 mL/min (>60) > 60 mL/min (>60) Glucose Level 119 MG/DL (74-106) H 97 MG/DL (74-106) Calcium Level 9.2 MG/DL (8.5-10.1) 8.4 MG/DL (8.5-10.1) L Iron Level 8 ug/dL (50-175) L Total Iron Binding Capacity 493 ug/dL (250-450) H Percent Iron Saturation 2 % (15-50) L Unsaturated Iron Binding 485 ug/dL (112-346) H Ferritin 2 NG/ML (8-388) L Total Bilirubin 0.3 MG/DL (0.2-1.0) 0.6 MG/DL (0.2-1.0) Direct Bilirubin < 0.1 MG/DL (0.0-0.3) Aspartate Amino Transf (AST/SGOT) 17 U/L (15-37) 19 U/L (15-37) Alanine Aminotransferase (ALT/SGPT) 35 U/L (12-78) 40 U/L (12-78) Alkaline Phosphatase 50 U/L (46-116) 46 U/L (46-116) Lactate Dehydrogenase 172 U/L (81-234) Total Protein 7.0 G/DL (6.4-8.2) 6.5 G/DL (6.4-8.2) Albumin 3.9 G/DL (3.4-5.0) 3.5 G/DL (3.4-5.0) Vitamin B12 Level 458 PG/ML (193-986) Folate 7.3 NG/ML (8.6-58.9) L Phosphorus Level 4.2 MG/DL (2.5-4.9) Magnesium Level 1.9 MG/DL (1.8-2.4) Globulin 3.0 g/dL Albumin/Globulin Ratio 1.2 (1.0-2.7) Height (Feet): 5 Height (Inches): 11.00 Weight (Pounds): 173 Assessment/Plan Assessment/Plan: #Acute blood loss anemia #Acute on chronic hematochezia 2/2 hemorrhoids #Hemorrhoids #acute lower gi bleed -Admit to telemetry -s/p 2 units PRBC in Ed -Repeat CBC -trend CBC -monitor overnight for stability -Appreciate GI consult: Dr. Manrique -Appreciate Surgery consult: Dr. Saini -Outpatient hemorroid surgery eventually #Etoh Abuse -Counseled on abstinence from alcohol. Last drink one week ago. -No signs of withdrawl -No history of withdrawl, delerium tremens, seizures, etc. FENPPX DVTPPX: SCDs GI PPX: none Fluids: none Diet: regular Lines: PIV PT/OT: pending Code status: FUll Dispo: Home Reason for Continued Hospitalization: acute blood loss MIPS (Merit-based Incentive Payment System) Applicable CPT: 28314, 52669 CHECK ALL THAT ARE MET: [] Measure #5 (CHF): All ages. Prescribe EARLINE/ARB upon discharge for patients with left ventricular systolic dysfunction. If not, the reason is clearly documented in the medical chart [] Measure #8 (CHF): All ages. Prescribe a beta estefanía upon discharge for patients with left ventricular systolic dysfunction. If not, the reason is clearly documented in the medical chart. [] Measure #47: Advance care plan or surrogate decision maker documented in the medical record. [x] Measure #130 The provider has documented, updated, or reviewed the patients current medication list and has documented it in the patients note. [x] Measure #374 (All): Send report to referring provider. [] Measure #407(Sepsis due to MSSA bacteremia): Age 18+ Patient treated with a beta-lactam antibiotic (Nafcillin, Oxacillin or Cefazolin) as definitive therapy. MEDICAL COMPLEXITYHigh complexity medical decision making (need 2/3 categories)Problem - need 4 points [x]Acute/new problem with new plan for workup (4 points, 1 max) [] Acute/new problem without additional workup (3 points, 1 max) [x] Unstable chronic problem actively being managed (2 point each, 2 max) [x] Stable chronic problem actively being managed (1 point each, 2 max) [] Self-limited/transient process (constipation, muscle ache, etc) (1 point each, 2 max) Data - need 4 points [x] Reviewed labs/imaging studies (1 points, 2 max) [x] Independent review of imaging (EKG, xrays, etc) (2 points, 2 max) [x] Discussed case with consult/other MD/RN (2 points, 2 max) High Risk - qualify if have one of the following: [x] Severe exacerbation of acute problem, acute mental status change, IV narcotics, monitoring drug levels (vancomycin, INR, tacrolimus etc) I spent 72 minutes on this patient's case, and 40 mins was dedicated to counseling and/or care coordination. Discussed with surgery, GI, RN Time of note may not reflect time of encounter Rosalio Quiñones D.O. Jul 29, 2020 17:43
--- NOTE | 2020-07-30 15:30 | NUR ---
INSURANCE CLINICALS/DC SUMMARY/INSTRUCTIONS FAXED TO [facility] [phone]
== END 2020-07-29 11:53 | disposition left against medical advice (07) | DRG 812 ==
LOC: EMR 17:23 → 2E 20:10 → EDBEDREQSVC 20:44 → EDBEDREQ 07-29 05:50 → 2E 07-29 09:47
PROC: 30233N1 Transfusion of Nonautologous Red Blood Cells into Peripheral Vein, Percutaneous Approach (ICD-10-PCS; principal; 2020-07-28)
DX: D62 Acute posthemorrhagic anemia (principal); K64.8 Other hemorrhoids; F10.10 Alcohol abuse, uncomplicated
CPT/HCPCS: 36415; 36430; 80048; 80053; 80076; 82607; 82728; 82746; 83010; 83540; 83550; 83615; 83735; 84100; 85007; 85025; 85044; 85610; 85730; 86850; 86900; 86901; 86920; 99291